=== PATIENT | male | born 1980 | race Two or more races ===

== ENCOUNTER 2020-09-18 16:55 | Outpatient (CLI) | payer SELFPAY | END 2020-09-18 16:56 | disposition EMS.NT | LOC: EMS 16:55 | PROVIDERS: ATTEND Surgery | DX: Z04.1 Encounter for examination and observation following transport accident (principal); R07.89 Other chest pain ==

== ENCOUNTER 2023-06-09 17:58 | Emergency (ER) | payer OTHER ==
--- NOTE | 2023-06-09 18:08 | ED Physician Documentation ---
PD HPI LOWER EXT INJURY - Stated complaint Stated Complaint: STEPPED ON NAIL - Chief complaint Chief Complaint: Laceration - History obtained from History obtained from: Patient, Other (lean manufacturing specialist tablet.) - History of Present Illness PD HPI LOW EXT INJURY LOCATION: Right, Foot Type of injury: Puncture wound (He stepped on a abbey nail at work. He went through his shoe. He had to pull hard to get it out. He said it bled well for a couple of minutes. He is able to walk on it with only slight pain. No bony tenderness. Normal movement and sensation in the toes.) Where injury occurred: Work Timing - onset: Today (Patient's main concern is a tetanus booster. He had cleaned the wound with some water and alcohol earlier. He does not have concern for retained foreign body.) Timing - details: Abrupt onset Worsened by: Palpating Associated symptoms: No: Weakness, Numbness Review of Systems Musculoskeletal: reports: Other (He had injured his right index finger with repair by hand surgeon in [place] a month or so ago. Its its healing adequately. He starts physical therapy for it tomorrow.) Neurologic: denies: Focal weakness, Numbness PD PAST MEDICAL HISTORY - Present Medications Home Medications: Ambulatory Orders Medication Instructions Recorded Confirmed Diclofenac Sodium Dr [Voltaren] 75 mg PO BIDWM 06/09/23 06/09/23 metFORMIN [Glucophage] 1,000 mg PO BIDWM 06/09/23 06/09/23 - Allergies Allergies/Adverse Reactions: Allergies Allergy/AdvReac Type Severity Reaction Status Date / Time No Known Drug Allergies Allergy Verified 06/09/23 18:05 PD ED PE NORMAL - Vitals Vital signs reviewed: Yes - General General: Alert and oriented X 3, Well developed/nourished - Derm Derm: Normal color, Warm and dry - Extremities Extremities: Other (The right plantar aspect of the foot over the fourth metatarsal head shows a small puncture wound without any noted foreign bodies and no current bleeding. Its mildly tender. There is no bony tenderness from the dorsal aspect. Normal sensation and movement of the toes.) - Neuro Neuro: No motor deficit, No sensory deficit Results - Vitals Vitals: Vital Signs - 24 hr 06/09/23 18:02 Temperature 36.2 C L Heart Rate 80 Respiratory 16 Rate Blood Pressure 135/74 H O2 Saturation 97 Oxygen O2 Source Room air PD Medical Decision Making - ED course Complexity details: considered differential (He has a puncture wound on the bottom of the foot from a abbey nail. No obvious bony tenderness to palpation or movement. No noted nerve injury as he has normal sensation and movement in the toes. Considered but did not see need for x-rays as low suspicion for fracture or foreign body. ), d/w patient Departure - Departure Disposition: 01 Home, Self Care Clinical Impression: Requires a booster tetanus Puncture wound of plantar aspect of foot Qualifiers: Encounter type: initial encounter Laterality: right Qualified Code(s): S91.331A - Puncture wound without foreign body, right foot, initial encounter Condition: Stable Record reviewed to determine appropriate education?: Yes Instructions: ED Wound Puncture Foot Print Language: Tuval[place] Comments: Ibuprofen if needed for pains.You were given a tetanus booster here today. This should be good for 10 years. Forms: PCP List
[2023-06-09 18:17] VITALS: BP 135/74; O2SAT 97
[2023-06-09] MEDS ORDERED: IBUPROFEN 800 MG TABLET PO STA (18:21)
[2023-06-09] MEDS ORDERED: TETANUS/DIPHTHERIA/PERTUSSIS 0.5 ML SYRINGE IM ONE (18:21)
== END 2023-06-09 18:53 | disposition home or self-care (01) ==
LOC: ED 17:58
DX: S91.331A Puncture wound without foreign body, right foot, initial encounter (principal); W45.0XXA Nail entering through skin, initial encounter; Z23 Encounter for immunization
CPT/HCPCS: 90471; 90715; 99283; A9270